=== PATIENT | female | born 1925 | race Caucasian/White ===

== ENCOUNTER 2017-04-29 10:12 | Emergency (ER) | payer MEDICARE ==
[~2017-04-29] VITALS: Ht 154.9 cm; Wt 56.5 kg
[~2017-04-29 10:12] MED LIST: ALPR0.257 PO; ALPR0.5T6 PO; CEFD300C37 PO; CHOL4PAC2 PO; HYDR-3237 PO; MAGN400T26 PO; PHEN-484 PO; POTA10TA5 PO; PROM25SU34 RC; SENN1TAB11 PO; SERT50TA PO; SUMA25TA4 PO; TRAM-47 PO; VANC1VIA3 PO
[2017-04-29 11:38] LABS: HEMATOCRIT 43.5 % (34.6-47.8); HEMOGLOBIN 14.6 g/dL (11.7-16.4)
[2017-04-29 11:49] LABS: BLOOD UREA NITROGEN 14 mg/dL (7-18)
[2017-04-29 11:53] LABS: ASPARTATE AMINO TRANSFERASE 17 U/L (15-37)
[2017-04-29 13:27] VITALS: BP 162/99
== END 2017-04-29 13:29 | disposition home or self-care (01) ==
LOC: ED 10:54
DX: R53.1 Weakness (principal); G43.909 Migraine, unspecified, not intractable, without status migrainosus; F41.9 Anxiety disorder, unspecified; Z90.49 Acquired absence of other specified parts of digestive tract
CPT/HCPCS: 36415; 70450; 71010; 80053; 85025; 93005; 99285